=== PATIENT | male | born 1945 | race Caucasian/White ===

== ENCOUNTER 2021-08-27 00:48 | Outpatient (CLI) | payer MEDICARE, MEDICAID, SELFPAY ==
--- NOTE | 2021-08-27 | DI.MRI_ITS ---
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 CONTRAST MATERIAL: IV Contrast: 20 ML of Dotarem contrast administered. COMPARISON: No exams were available for comparison. Should priors become available, an addendum abbey l be issued at that time. FINDINGS: The examination is limited due to patient motion artifact. VENTRICLES AND EXTRA AXIAL SPACES: Normal in size and morphology for the patient's age. HEMORRHAGE: None. CEREBRAL PARENCHYMA: No focus of restricted diffusion to suggest acute infarct. No space-occupying le chey identified. There are multiple areas of hyperintense signal on the FLAIR and T2 weighted images in the white matter most consistent with chronic microvascular ischemic disease. 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 MIDLINE SHIFT: None. BRAINSTEM/CEREBELLUM: Normal. CALVARIUM: Normal. ENHANCEMENT: No suspicious enhancement identified. No evidence of residual or recurrent mass along th e left sphenoid wing. VISUALIZED PARANASAL SINUSES/MASTOIDS: Clear. TANANA OF MATHUR: Normal flow void. PITUITARY GLAND: Unremarkable. OTHER FINDINGS: IMPRESSION: 1. Postsurgical changes involving the left anterior and middle cranial fossa. 2. No evidence of recurrent or residual meningioma. 3. Age-related cerebral atrophy and chronic microvascular ischemic disease. No evidence of an acute infarct. DATA REPOSITORY:
[2021-08-27] MEDS: Gadoterate meglumine 20 ML VIAL IVP (14:10)
[2021-08-27] MEDS: Normal Saline Flush 10 ML SYR IVP (14:10)
== END 2021-08-27 01:08 ==
PROVIDERS: Neurological Surgery; PCP Family Medicine; Visit Provider Physician Assistant Surgical
DX: D49.6 Neoplasm of unspecified behavior of brain (principal); Z01.812 Encounter for preprocedural laboratory examination; G31.89 Other specified degenerative diseases of nervous system; I67.82 Cerebral ischemia
CPT/HCPCS: 70553; 82565